=== PATIENT | male | born 1955 | race Caucasian/White ===

== ENCOUNTER → 2018-03-13 | Day surgery (SDC) | payer MEDICAID ==
[~2018-03-13] MED LIST: Lactated Ringers 1,000 ML IV SCH; Propofol 200 MG/20 ML SDV IV ONE
[2018-03-13 12:12] VITALS: BP 112/46
--- NOTE | 2018-03-16 10:05 | OR ---
DATE OF OPERATION: 03/13/2018 PREOPERATIVE DIAGNOSIS: SCREENING COLONOSCOPY. POSTOPERATIVE DIAGNOSIS: SCREENING COLONOSCOPY. SURGEON: Pierce Akbar MD PROCEDURE: FULL-LENGTH COLONOSCOPY WITH SNARE POLYPECTOMY X2. 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 COMPLICATIONS: None. SPECIMEN: Tubulovillous adenomas x2, each larger than 0.5 cm. FINDINGS: 1. Full-length colonoscopy. 2. Mild sigmoid diverticulosis. 3. Two large tubulovillous adenomas. RECOMMENDATIONS: Followup colonoscopy in 1 year. INDICATIONS: The patient was in to see his primary provider and was scheduled for a screening colonoscopy as he has never had one in the past. DESCRIPTION OF PROCEDURE: The patient was prepped and draped, placed in the left lateral decubitus position. A lubricated Olympus colonoscope was inserted and easily advanced to the cecum. We were able to directly visualize the ileocecal valve and appendiceal orifice. The bowel prep was fine. Upon withdrawal of the scope, the cecum, ascending, transverse colons were completely benign. Throughout the descending and most of the sigmoid area, no abnormalities were visualized. The patient does have some scattered diverticula in the distal portion of the sigmoid colon, but proximal to this, there were no signs of any polyps, mass, ulceration, or bleeding sites. No vascular abnormalities or signs of colitis. At around 35 cm in the distal sigmoid colon, the patient had a larger tubulovillous adenoma. It was removed with a snare and brought out through the rectum. This site had no bleeding and the stalk was removed completely. The rest of the rectosigmoid junction appeared benign, and the rectum itself in the mid rectal vault, the patient had a 2nd tubulovillous lesion also greater than 0.5 cm. It was removed with a snare and brought out through the rectum as well. Retroflexion of scope in the rectum showed no perianal lesions. Air was then suctioned, scope removed without complication. XAVIER/LORAINE /[id number]
== END ==
LOC: CC.SDS 09:01
PROVIDERS: ATTEND Family Medicine
DX: Z12.11 Encounter for screening for malignant neoplasm of colon (principal); D12.5 Benign neoplasm of sigmoid colon; D12.8 Benign neoplasm of rectum; K57.30 Diverticulosis of large intestine without perforation or abscess without bleeding; I10 Essential (primary) hypertension; J44.9 Chronic obstructive pulmonary disease, unspecified; F17.210 Nicotine dependence, cigarettes, uncomplicated; I25.10 Atherosclerotic heart disease of native coronary artery without angina pectoris; E78.5 Hyperlipidemia, unspecified; Z79.82 Long term (current) use of aspirin; Z79.899 Other long term (current) drug therapy
CPT/HCPCS: 45385; J2704; J7120

== ENCOUNTER → 2019-03-19 | Day surgery (SDC) | payer MEDICAID ==
[2019-03-19 13:32] VITALS: BP 126/77; PULSE 74
--- NOTE | 2019-03-19 13:51 | OR ---
DATE OF OPERATION: 03/19/2019 PREOPERATIVE DIAGNOSIS: FOLLOW UP POLYPS. POSTOPERATIVE DIAGNOSIS: FOLLOW UP POLYPS. SURGEON: Pierce Akbar MD PROCEDURE: FULL-LENGTH COLONOSCOPY WITH SNARE POLYPECTOMY X5. SURGEON PAGE. ANESTHESIA: MAC. COMPLICATIONS: None. SPECIMEN: Five separate tubular adenomas, see report, all 0.5 cm or less. FINDINGS: 1. Full-length colonoscopy. 2. [id number] sigmoid and rectosigmoid diverticulosis. 3. A total of five polyps, four of them flat sessile polyps, one stalked tubular adenoma in the rectosigmoid junction, all 0.5 cm or less. RECOMMENDATIONS: Followup colonoscopy in 2 years. INDICATIONS: The patient had a previous colonoscopy where he had two larger tubulovillous lesions removed. At that time, his prep was marginal, and we recommended a one-year followup. Pathology was benign on both. DESCRIPTION OF PROCEDURE: The patient was prepped and draped, placed in the left lateral decubitus position. A lubricated Olympus colonoscope was inserted and with relative ease advanced to the cecum. The patient's prep again was marginal, but we were able to directly visualize the ileocecal valve and appendiceal orifice. Most of the stool present in colon, I could irrigate, and we did thoroughly today. Upon withdrawal, the cecum and ascending colon were completely benign. In the distal transverse colon, the patient had probably a 4 to 5 mm flat sessile polyp, we removed with a snare and suctioned into polyp trap #1. In the proximal sigmoid area, the patient had a second slightly larger, maybe a 5 mm flat sessile polyp, also removed with a snare and suctioned into polyp trap #2 without difficulty. In the sigmoid and rectosigmoid junction, the patient had mild to moderate diverticular disease without any inflammatory change or bleeding. Distal sigmoid also had a sessile polyp, removed with a snare, and suctioned into polyp trap #3. Just distal to that, prior to the rectosigmoid junction, the patient had 2 small flat sessile polyps, one removed with a snare, one with forceps. We put them in the same bottle and these were very small in size. One was slightly raised, which we took with a snare. Right in the middle of the rectosigmoid junction at its most distal portion, just prior to the rectal vault, the patient had a stalked tubular adenoma. It was very difficult to get at just because of its location and right at the sharp turn of the colon. We were able to finally get a snare around the head of this, remove it, and brought it out right through the colon on the end of the scope without any difficulty. The rest of the rectosigmoid junction and rectal vault were completely benign. Retroflexion showed no perianal lesions. Air was then suctioned and scope removed without complication. XAVIER/LORAINE /[id number]
== END ==
LOC: CC.SDS 09:50
PROVIDERS: ATTEND Family Medicine
DX: Z12.11 Encounter for screening for malignant neoplasm of colon (principal); D12.7 Benign neoplasm of rectosigmoid junction; K63.5 Polyp of colon; K57.30 Diverticulosis of large intestine without perforation or abscess without bleeding; J44.9 Chronic obstructive pulmonary disease, unspecified; I25.10 Atherosclerotic heart disease of native coronary artery without angina pectoris; I10 Essential (primary) hypertension; E78.5 Hyperlipidemia, unspecified; E78.00 Pure hypercholesterolemia, unspecified; F17.210 Nicotine dependence, cigarettes, uncomplicated; Z86.010 Personal history of colon polyps; Z79.82 Long term (current) use of aspirin; Z79.899 Other long term (current) drug therapy; Z90.49 Acquired absence of other specified parts of digestive tract
CPT/HCPCS: 45380; 45385; J2704; J7120

== ENCOUNTER → 2021-03-16 | Day surgery (SDC) | payer MEDICARE, MEDICAID ==
[~2021-03-16] MED LIST changes: +Flumazenil 0.1 MG/ML 5 ML MDV ONE; +Ketamine 200 MG/20 ML MDV ONE; +Midazolam 1 MG/ML 2 ML SDV ONE; +Phenylephrine 1% 10 MG/ML SDV ONE; -Propofol 200 MG/20 ML SDV IV ONE; +Propofol 200 MG/20 ML SDV ONE; +fentaNYL 100 MCG/2 ML SDV ONE
[2021-03-16 10:36] VITALS: BP 118/74; PULSE 77
--- NOTE | 2021-03-16 12:48 | OR ---
DATE OF OPERATION: 03/16/2021 PREOPERATIVE DIAGNOSIS: HISTORY OF POLYPS. POSTOPERATIVE DIAGNOSIS: HISTORY OF POLYPS. SURGEON: Pierce Akbar MD PROCEDURE: FULL-LENGTH COLONOSCOPY WITH FORCEPS POLYP REMOVAL X2, SNARE POLYPECTOMY X3. ANESTHESIA: MAC. COMPLICATIONS: None. SPECIMEN: Five tubular adenomas. RECOMMENDATIONS: Followup colonoscopy in 3 years. INDICATIONS: The patient has had multiple colonoscopies, initially with a large tubulovillous lesion removed. He had a followup a year later and this was a 2- year followup. DESCRIPTION OF PROCEDURE: The patient was prepped and draped, placed in the left lateral decubitus position. A lubricated Olympus colonoscope was inserted and easily advanced to the cecum. Direct visualization of the ileocecal valve and appendiceal orifice was accomplished. The bowel prep was fine. Upon withdrawal of the scope, the cecum and ascending colon appeared benign. The patient had a small sessile polyp at the hepatic flexure, removed in its entirety with a forceps. The rest of the ascending and transverse colon were unremarkable as was the descending colon. The patient does have scattered diverticular disease throughout the sigmoid and rectosigmoid area. In the distal sigmoid colon, the patient had his 2nd polyp in the distal colon, removed with forceps as well as. It was probably 2 to 3 mm. At or near the rectosigmoid junction, patient had a cluster of 3 small tubular adenomas, all removed with forceps and suctioned into polyp trap #1 without difficulty. The rectal vault itself appeared benign. Retroflexion of the scope in the rectum showed no perianal lesions. Air was suctioned. The scope was removed without complication. XAVIER/LORAINE /[id number]
== END ==
LOC: CC.SDS 08:56
PROVIDERS: ATTEND Family Medicine
DX: Z12.11 Encounter for screening for malignant neoplasm of colon (principal); K63.5 Polyp of colon; K57.30 Diverticulosis of large intestine without perforation or abscess without bleeding; I25.10 Atherosclerotic heart disease of native coronary artery without angina pectoris; J44.1 Chronic obstructive pulmonary disease with (acute) exacerbation; I10 Essential (primary) hypertension; I42.2 Other hypertrophic cardiomyopathy; L40.9 Psoriasis, unspecified; E78.00 Pure hypercholesterolemia, unspecified; F17.210 Nicotine dependence, cigarettes, uncomplicated; Z79.899 Other long term (current) drug therapy; Z79.82 Long term (current) use of aspirin; Z90.49 Acquired absence of other specified parts of digestive tract; Z98.890 Other specified postprocedural states
CPT/HCPCS: 45380; J2250; J2370; J2704; J3010; J3490; J7120; 00812

== ENCOUNTER → 2024-01-22 | Day surgery (SDC) | payer MEDICARE, MEDICAID ==
[~2024-01-22] MED LIST changes: +Acetaminophen/oxyCODONE 325-5 MG Tab PO PRN; +Albuterol 6.7 GM Inhaler INH PRN; -Flumazenil 0.1 MG/ML 5 ML MDV ONE; -Ketamine 200 MG/20 ML MDV ONE; -Lactated Ringers 1,000 ML IV SCH; +Lidocaine 1% 30 ML SDV INJECT ONE; +Ondansetron 4 MG/2 ML SDV ONE; -Propofol 200 MG/20 ML SDV ONE; -fentaNYL 100 MCG/2 ML SDV ONE; +fentaNYL 50 MCG/ML SDV ONE
[2024-01-22] MEDS: Lactated Ringers 1,000 ML IV SCH (09:43)
[2024-01-22] MEDS: ceFAZolin 2 GM Vial IVPUSH ONE (10:16)
[2024-01-22] MEDS: Lidocaine 1% 30 ML SDV ONE (11:14)
[2024-01-22] MEDS: ACETAMINOPHEN PO PRN (14:29)
[2024-01-22] MEDS: OXYCODONE PO PRN (14:29)
[2024-01-22] MEDS: Acetaminophen/oxyCODONE 325-5 MG Tab PO PRN (18:31)
[2024-01-22] MEDS: Metoprolol Tartrate 50 MG Tab PO SCH (19:32)
[2024-01-23 12:16] VITALS: BP 132/68; PULSE 62
== END ==
LOC: CC.SDS 09:06
PROVIDERS: ATTEND Surgery
DX: K40.90 Unilateral inguinal hernia, without obstruction or gangrene, not specified as recurrent (principal); I25.10 Atherosclerotic heart disease of native coronary artery without angina pectoris; J44.9 Chronic obstructive pulmonary disease, unspecified; I10 Essential (primary) hypertension; E78.5 Hyperlipidemia, unspecified; F17.210 Nicotine dependence, cigarettes, uncomplicated; Z79.82 Long term (current) use of aspirin; Z79.899 Other long term (current) drug therapy
CPT/HCPCS: 00830; 36415; 80307; A9270-GY; J0690; J2250; J2371; J2405; J3010; J3490; J7120

== ENCOUNTER 2024-02-27 07:17 | Day surgery (SDC) | payer MEDICARE, MEDICAID ==
[2024-02-27] MEDS: Lactated Ringers 1,000 ML IV SCH (07:40)
[2024-02-27] MEDS ORDERED: Midazolam 1 MG/ML 2 ML SDV ONE (08:23)
[2024-02-27] MEDS ORDERED: fentaNYL 50 MCG/ML SDV ONE (08:23)
[2024-02-27] MEDS ORDERED: Propofol 200 MG/20 ML SDV ONE (08:23)
[2024-02-27] MEDS ORDERED: Ketamine 200 MG/20 ML MDV ONE (08:23)
[2024-02-27 09:10] VITALS: PULSE 82
[2024-02-27 10:23] VITALS: BP 100/56
== END 2024-02-27 10:00 | disposition home or self-care (01) ==
LOC: CC.SDS 07:17
PROVIDERS: ATTEND Family Medicine
DX: Z12.11 Encounter for screening for malignant neoplasm of colon (principal); D12.8 Benign neoplasm of rectum; K63.5 Polyp of colon; K57.30 Diverticulosis of large intestine without perforation or abscess without bleeding; Z86.0100 Personal history of colon polyps, unspecified; J44.9 Chronic obstructive pulmonary disease, unspecified; I25.10 Atherosclerotic heart disease of native coronary artery without angina pectoris; I10 Essential (primary) hypertension; I42.2 Other hypertrophic cardiomyopathy; E78.00 Pure hypercholesterolemia, unspecified; Z95.1 Presence of aortocoronary bypass graft; Z79.82 Long term (current) use of aspirin; Z79.899 Other long term (current) drug therapy
CPT/HCPCS: 00811; 45380; 88305; J2250; J2704; J3010; J3490; J7120